=== PATIENT | female | born 1925 | race Caucasian/White ===

== ENCOUNTER → 2016-09-04 | Outpatient (CLI) | payer OTHER | LOC: MMPC 11:11 | PROVIDERS: ATTEND Internal Medicine | DX: G30.9 Alzheimer's disease, unspecified (principal) | CPT/HCPCS: 99214; G0463 ==

== ENCOUNTER 2017-01-08 19:39 | Observation (INO) ==
[2017-01-08] MEDS ORDERED: Sodium Chloride 0.9% 1,000 ML PRIMARY IV ONE (20:08)
[2017-01-08] MEDS ORDERED: ONDANSETRON 4 MG/2 ML VIAL IVP ONE (20:08)
[2017-01-08] MEDS ORDERED: MORPHINE SULFATE 2 MG/1 ML IVP ONE (20:08)
--- NOTE | 2017-01-08 20:14 | PDOC ---
Neck Pain / Injury HPI - General Chief Complaint: Neck / Back Complaint Stated Complaint: PAINFUL LUMP ON LEFT SIDE OF NECK Date Seen by Provider: 01/08/17 Time Seen by Provider: 20:09 Source: POSITIVE: Spouse, Other (Daughter) Exam Limitations: POSITIVE: Clinical condition Nurse's Notes Reviewed & Considered: Yes - History of Present Illness Initial Comments: This is a severely demented cachectic appearing 89-year-old female brought in by her family because of complaints of neck pain. Patient has had her head in a extended position for approximately 5 days since at least . She's had decreased appetite eating only a teaspoon or less of applesauce at any one time. Family states there have been no fevers, no nausea vomiting or diarrhea, no cough, no shortness of breath, she has been urinating well. Patient is mute , and minimally interactive. Body Location Affected: REPORTS: Neck Timing: REPORTS: Unknown Duration: Unknown Context: REPORTS: None Recent Injury: DENIES: Yes, No, Possibly Location at Time of Onset: REPORTS: Home Concurrent Injuries: DENIES: Neck, Head, Back, Chest, Abdomen, Extremities, Face , Other Modifying Factors: improves with: Nothing Associated Symptoms: REPORTS: Denies symptoms Similar Symptoms Previously: No Recent Care Received: REPORTS: Denies Any Prior Injuries Related to Current Complaint?: No - Patient Home Medications Home Medications: Home Medications NK [NK] 01/08/17 - Patient Allergies Allergies/Adverse Reactions: Allergies 3 Allergy/AdvReac Type Severity Reaction Status Date / Time cholestyramine Allergy Unknown per old Verified 01/08/17 20:05 [From [facility]] chart Penicillins Allergy Unknown per old Verified 01/08/17 20:05 record Chmsate-Xpu-Juy Reductase Allergy Unknown per old Verified 01/08/17 20:05 Inhibitor chart sucrose [From [facility]] Allergy Unknown per old Verified 01/08/17 20:05 chart Sulfa (Sulfonamide Allergy Unknown per old Verified 01/08/17 20:05 Antibiotics) chart ROS - Limitations ROS Limitations: Physical Impairment, Mental Impairment, Other (please comment) (No further review of systems is unavailable because the patient's mute condition.) Neck Pain/Injury Exam - General Appearance General Appearance: REPORTS: No Evidence of Trauma, Unresponsive (She is responsive only to pain.) - HEENT HEENT: POSITIVE: Head Inspection Nml, Eyes Inspection Nml, Ears Inspection Nml, Nose Inspection Nml, Oral/Dental Inspect. Nml, Pharynx Inspect. Nml, PERRL, EOMI , Dry Mucous Membranes - Pupil Size Pupil Size: 5 mm: Bilateral - Neck Neck: POSITIVE: Thyroid Normal, Muscle Spasm (Right greater than left sternocleidomastoid muscle enlarged thickened and tender to palpation. No lymphadenopathy is appreciated.), Altered Mental Status - Back Back: REPORTS: No CVA Tenderness, Limited ROM - Respiratory / CVS Respiratory / CVS: POSITIVE: Chest Non Tender, No Ecchymosis, Breath Sounds Normal, No Respiratory Distress, Heart Sounds Normal, Regular Rate/Rhythm - Abdomen Abdomen: Soft: (All Quadrants), Normal Bowel Sounds: (All Quadrants) - Skin Skin: REPORTS: Intact, Normal For Race, Warm, Dry, No Rash - Extremities Extremity Assessment: Non-Tender: (ALL), No Edema: (ALL) - Neurological / Psychological Neuro / Psych: POSITIVE: Disoriented to Person, Disoriented to Place, Disoriented to Time Neck Pain/Injury Progress - Results Reviewed by me Xrays/CTs/US Reviewed by me: Yes Lab Results Reviewed by Me: Yes CBC and BMP: 01/08/17 20:30 01/08/17 20:30 - Patient's Progress Pain Medication Addressed: POSITIVE: Not Applicable Re-Examine Time: 22:31 Status: POSITIVE: Unchanged MDM / ED Course: Patient was evaluated. An IV was started, blood drawn and sent to the lab for studies, radiographic examinations were obtained. Findings: CBC shows white count elevated at over 18. Hemoglobin is 10. Platelets are elevated. Comprehensive metabolic panel shows electrolyte dyscrasia with hypernatremia of 167. Potassium is 5.5. Creatinine is elevated at 4 BUN is elevated 148. CT scan, per my interpretation, shows no acute intracranial abnormalities, there is significant brain atrophy present. Assessment: Hyponatremia, hyperkalemia, renal failure, an inch she. Plan: Admission, IV hydration, consultation for home hospice. - Consult Counseled: POSITIVE: Family, RE: Lab Results, RE: Radiology Results, RE: DX Patient Care Time - Estimated PCT Patient Care Time (In Minutes): 45 Vital Signs - VS Reviewed Vital Signs Reviewed: Yes Discharge Clinical Impression: Acute hypernatremia, Hyperkalemia, Renal failure, Dementia Discharge Disposition: Admit to Inpatient Condition: Serious Follow Up With: NONE,NONE [NON-STAFF] - Date Decision to Admit to Inpatient: 01/08/17 Time Decision to Admit to Inpatient: 22:35
[2017-01-08 20:54] LABS: BASOPHILS # (AUTO) 0.04 10*3/UL; BASOPHILS % (AUTO) 0.2 % (0-1); EOSINOPHILS # (AUTO) 0 10*3/UL; EOSINOPHILS % (AUTO) 0 % (0-8); Hemoglobin [HGB] 10.2 g/dL (12.0-16.0); LYMPHOCYTES # (AUTO) 2.07 10*3/uL; MEAN CORPUSCULAR HEMOGLOBIN 25.8 PG (27-31); MEAN CORPUSCULAR VOLUME 86.1 FL (81-99); MEAN PLATELET VOLUME 11.5 FL (7.4-12.2); MONOCYTES % (AUTO) 4.8 % (5-15); NEUTROPHILS # (AUTO) 15.77 10*3/UL; NEUTROPHILS % (AUTO) 83.7 % (50-80); RED BLOOD COUNT 3.95 10^6/uL (4.20-5.40)
[2017-01-08 21:03] LABS: MAGNESIUM 3.9 mg/dL (1.6-2.4); SERUM ALBUMIN 3.6 g/dL (3.5-4.8)
[2017-01-08 21:12] LABS: PLATELET MORPHOLOGY COMMENT NORMAL MORPHOLOGY (NORM); WBC MORPHOLOGY COMMENT NORMAL MORPHOLOGY (NORM)
[2017-01-08 21:13] LABS: RBC MORPHOLOGY COMMENT SEE COMMENTS (NORM)
[2017-01-08 21:15] LABS: BLOOD UREA NITROGEN 148 mg/dL (7-22)
--- NOTE | 2017-01-08 21:33 | DI ---
HISTORY: Cachectic. COMPARISON: No comparison images available. FINDINGS: Exam is limited by probable overlying blanket. The heart is normal in size, allowing for t echnique. The mediastinal contour is within normal limits. The pulmonary vascularity is within norm al limits. The trachea is unremarkable. Atherosclerotic calcifications are noted. There is no evid ence of focal consolidation, pleural effusion or pneumothorax on this single view. No acute skeletal pathology is seen. IMPRESSION: 1. No acute pulmonary pathology on this single frontal view of the chest, noting limitations related to probable overlying blanket. 2. Several gas-filled loops of bowel upper abdomen are partially imaged, but incompletely evaluated.
--- NOTE | 2017-01-08 22:35 | DI ---
HISTORY: Neck pain. COMPARISON: None available. TECHNIQUE: Contiguous axial unenhanced images of the brain were obtained from the skull base through the vertex, and the images were submitted for interpretation. FINDINGS: There is no CT evidence of an acute intracranial hemorrhage. No extra-axial fluid collect ion identified. Normal hollins-white matter differentiation is noted. No mass or evidence of mass effe ct seen. CSF spaces are clear. Diffuse periventricular hypodensities are likely secondary to small vessel ischemic disease. There is mild cortical volume loss and CSF space prominence, likely senesce nt. Paranasal sinuses and orbits are normal. There are vascular calcifications. IMPRESSION: 1. No CT evidence of acute intracranial abnormality. 2. Chronic findings as above.
--- NOTE | 2017-01-08 22:49 | DI ---
HISTORY: Neck pain. COMPARISON: None available. TECHNIQUE: Contiguous axial images of the cervical spine were obtained and submitted for interpretat ion. FINDINGS: There is no evidence of an acute cervical spine fracture or dislocation. There is no prev ertebral soft tissue swelling identified that would suggest an acute soft tissue injury. Moderate de generative disc disease is present at the C4/5 level. There is mid to lower cervical moderate, right greater than left, facet arthropathy. IMPRESSION: 1. No fracture or dislocation. 2. No prevertebral soft tissue swelling to suggest acute soft tissue injury. 3. Moderate degenerative disc disease at C4/5. 4. Mid to lower cervical moderate right greater than left facet arthropathy.
[2017-01-08] MEDS ORDERED: ONDANSETRON 4 MG/2 ML VIAL IVP PRN (23:58)
[2017-01-08] MEDS ORDERED: NORMAL SALINE 10 ML SYRINGE FLUSH IVP PRN (23:58)
[2017-01-08] MEDS ORDERED: LIDOCAINE W/ SODIUM BICARB 0.5 ML SYR SUBD PRN (23:58)
[2017-01-09] MEDS ORDERED: MORPHINE SULFATE 2 MG/1 ML IVP PRN
[2017-01-09] MEDS ORDERED: LORazepam 2 MG/1 ML VIAL IVP PRN (00:01)
--- NOTE | 2017-01-09 00:10 | PDOC ---
HPI - History of Present Illness Date and Time of Service: 01/08/2017 11:30 PM Chief Complaint: Change in mental status about a week duration History of Present Illness: This is a 89 years old female with the medical history significant for history of advanced Alzheimer disease had it for more than 10 years who was brought to the hospital for evaluation because of rapid deterioration in mental status that happened probably close to 1 week ago. The daughter said that about a month ago she started to eat less than before, she would close her mouth and refused to eat and last week she become less mobile and more laying in bed. Her baseline is that she doesn't communicate except by pointing sometimes to what she wants them to do for her. Because of the change in mental status they brought her to the ER for evaluation which revealed renal failure with hypernatremia and hyperkalemia also elevated white count. She had x-rays including a CT scan of the neck and head which showed degenerative changes in the neck and CT of the head showed atrophy and small vessel changes. In the ER she was given fluids and she was admitted. Information is obtained from review of the notes and speaking to the daughters as no meaningful information can be obtained from the patient herself. Past Medical History Medical History: 1. Advanced Alzheimer disease Surgical History: No surgeries before Family History: Reviewed an Not Pertinent Past Social History: Doesn't smoke, doesn't drink, no drugs. [place] . He Was her caregiver until 2011 when he had surgery and one of her daughters is mainly her caregiver in addition to people that would come in and help during the morning. She seems that she was walking with assistance until probably a month ago. The last 2-3 weeks she seems to start to refuse food by closing her mouth. The last week there is more change in her status and she is laying in bed. Tobacco Use: Never Smoker In the Past 12 Months, Have Used or Abuse Any of the Following Substance: None Alcohol Use: None Medication / Allergies Home Medications: Home Medications Medication Instructions Recorded Confirmed Type NK [NK] 01/08/17 01/08/17 History Allergies/Adverse Reactions: Allergies 3 Allergy/AdvReac Type Severity Reaction Status Date / Time cholestyramine Allergy Unknown per old Verified 01/08/17 20:05 [From [email or web address]] chart Penicillins Allergy Unknown per old Verified 01/08/17 20:05 record Mvrjzvm-Vyd-Ahk Reductase Allergy Unknown per old Verified 01/08/17 20:05 Inhibitor chart sucrose [From [facility]] Allergy Unknown per old Verified 01/08/17 20:05 chart Sulfa (Sulfonamide Allergy Unknown per old Verified 01/08/17 20:05 Antibiotics) chart Review of Systems - Review of Systems All Systems: Reviewed & No Additional Complaints Except as Stated Exam - Vitals Vital Signs: Vital Signs Height 4 ft 11 in Weight 71 lb - General Additional General Exam Details: Thin elderly female laying in bed seems to be stiff all over. Hyperextended neck. - Head Head Exam: Normal Inspection - Eye Eye Exam: POSITIVE: Normal Appearance - ENT ENT Exam: POSITIVE: Normal Exam, Mucous Membranes Dry - Neck Additional Neck Exam Details: Neck is hyperextended - Respiratory Respiratory Exam: POSITIVE: Clear to Auscultation - Bilaterally - Cardiovascular Cardiovascular Exam: POSITIVE: RRR - GI/Abdominal GI/Abdominal Exam: POSITIVE: Normal Bowel Sounds, Non Tender, Non Distended, Soft - Rectal Rectal Exam: POSITIVE: Deferred - External Exam: POSITIVE: Deferred - Extremities Additional Extremities Exam Details: Tone seemed to be increased in all limbs. She withdrawals in response to stimuli. Pupils equal and reactive. - Neurological Additional Neurological Exam Details: Pupil equal and reactive, withdrawal response to stimuli. Tone increased all limbs. - Integumentary Integumentary Exam: POSITIVE: Dry Results - Labs CBC and BMP: 01/08/17 20:30 01/08/17 20:30 - Imaging Status: Report Reviewed by Me (CT head the intracranial abnormalities, small vessel disease changes with the atrophy. Chest x-ray no acute pulmonary abnormality. CT neck moderate degenerative changes C4-C5) Assessment and Plan - Patient Problems (1) Renal failure Current Visit: Yes Status: Acute Comment: Hard to say whether this is renal or prerenal but I think probably there is a prerenal component to the presentaion. The patient's daughter are interested in only hospice at home because of her advanced dementia. I did discuss with them fluid therapy they elected not to give her more fluid. And we decided to keep her comfort care and will call the hospice in the morning as the preference is home hospice. I will write for morphine and Ativan as needed. Code(s): N19 - Unspecified kidney failure
[2017-01-09 00:21] VITALS: RESP 14; TEMP 97
[2017-01-09 02:32] VITALS: BP 118/61
--- NOTE | 2017-01-09 10:28 | PDOC(PROG) ---
Date and Time of Service: 01/09/2017 10:24 AM Interval History: Subjective Patient seems to be comfortable. Objective : Data - Labs CBC and BMP: 01/08/17 20:30 01/08/17 20:30 Objective : Exam - General General Appearance: Thin Additional General Exam Details: Does not appear in distress - Respiratory Respiratory Exam: Clear to Auscultation - Bilaterally - Cardiovascular Cardiovascular Exam: RRR Assessment and Plan - Patient Problems (1) Renal failure Current Visit: Yes Status: Acute Comment: The decision is comfort care I spoke with the materials planner/production planner she met with the daughters and the referral for hospice was made. Code(s): N19 - Unspecified kidney failure
--- NOTE | 2017-01-09 14:42 | DCSUMMARY ---
Hospitalization Summary Admit Date: 01/08/17 Discharge Date: 01/09/17 Hospital Course: Discharge diagnoses 1. Renal failure likely acute 2. Hypernatremia 3. Hyperkalemia 4. History of advanced Alzheimer disease 5. Leukocytosis Hospital course This is a 89 years old female with medical history significant for history of advanced Alzheimer disease had it for more than 10 years who was brought to the hospital for evaluation because of for the deterioration mental status that happened close to a week before admission. The daughter said that about a month ago she started to eat less than before, she would close her mouth and refuses to eat. Last week she became less mobile and more laying in bed. Her baseline is that she doesn't communicate much except by pointing sometimes to what she wants them to do for her. Because of the change in mental status they brought her to the ER for evaluation which revealed renal failure with hypernatremia and hyperkalemia and also elevated white count. She had x-rays including a CT scan of the neck and head which showed degenerative changes in the neck and CT of the head showed atrophy and small vessel ischemic changes. In the ER she was given fluids and she was admitted. When I saw her she was laying in bed no meaningful information can be obtained from her. There is increased tone all over in addition to hyperextension of the neck she looked dry. I discussed with the family option of treatment they are interested only in hospice at home because of her advanced Alzheimer disease. We decided to keep her comfortable in the next day we consulted hospice who accepted the patient and she will be discharge home for hospice at home. Laboratory Results 01/08/17 01/08/17 Range/Units 20:30 20:30 WBC 18.83 H (4.8-10.8) 10^3/uL RBC 3.95 L (4.20-5.40) 10^6/uL Hgb 10.2 L (12.0-16.0) g/dL Hct 34.0 L (37.0-47.0) % MCV 86.1 (81-99) FL MCH 25.8 L (27-31) PG MCHC 30.0 L (33-37) g/dL RDW Std Deviation 66.0 H (39-50) fL RDW Coeff of Dom 21.6 H (11.5-14.5) % Plt Count 421 H (140-350) 10*3/uL MPV 11.5 (7.4-12.2) FL Immature Gran % (Auto) 0.3 (0-5) % Neut % (Auto) 83.7 H (50-80) % Lymph % (Auto) 11.0 (10-50) % [place] % (Auto) 4.8 L (5-15) % Eos % (Auto) 0 (0-8) % Baso % (Auto) 0.2 (0-1) % Immature Gran # (Auto) 0.05 10*3/UL Neut # (Auto) 15.77 10*3/UL Lymph # (Auto) 2.07 10*3/uL [place] # (Auto) 0.90 H (0.3-0.8) 10*3/UL Eos # (Auto) 0 10*3/UL Baso # (Auto) 0.04 10*3/UL WBC Morphology Comment Normal morphology (NORM) Plt Morphology Comment Normal morphology (NORM) RBC Morph Comment See comments (NORM) Sodium 167 H* (135-145) meq/L Potassium 5.5 H (3.8-5.2) meq/L Chloride 127 H (98-112) meq/L Carbon Dioxide 20 L (23-33) meq/L Anion Gap 20 (5-20) BUN 148 H (7-22) mg/dL Creatinine 4.0 H (0.50-1.20) mg/dL Estimated GFR Paving Machine Operator BUN/Creatinine Ratio 37.00 H (6-20) Glucose 134 H (78-110) mg/dL Calculated Osmolality 393.0 H (267-292) mOsm/kg Calcium 9.6 (8.7-10.7) mg/dL Magnesium 3.9 H (1.6-2.4) mg/dL Total Bilirubin 0.5 (0.3-1.2) mg/dL AST 29 (8-39) IU/L ALT 44 (9-52) IU/L Alkaline Phosphatase 224 H (38-126) IU/L C-Reactive Protein 8.9 H (0.0-0.9) mg/dL Total Protein 7.6 (6.1-8.0) g/dL Albumin 3.6 (3.5-4.8) g/dL Globulin 4.1 (2.50-4.10) g/dL Albumin/Globulin Ratio 0.80 L (1.3-2.0) mg/g Home Medications Medication Instructions Recorded Confirmed Type Lorazepam 2 mg PO Q2H PRN PRN #30 oral.conc 01/09/17 Rx Morphine Sulfate [Roxanol] 20 mg PO Q1H PRN #30 ml 01/09/17 Rx Patient will be followed up by hospice at home Exam - Vitals Vital Signs: Vital Signs Temperature 97 F Temperature Source Temporal Artery Scan Pulse Rate [Pulse Oximeter] 77 Pulse Rate 91 Respiratory Rate 14 Blood Pressure [Right Arm] 131/51 Blood Pressure 118/61 Pulse Ox 96 Oxygen Flow Rate 2.5 Oxygen Delivery Method Nasal Cannula Height 4 ft 11 in Weight 71 lb Patient Problems - Patient Problem List (1) Renal failure Current Visit: Yes Status: Acute Comment: The decision is comfort care I spoke with the systems planner she met with the daughters and the referral for hospice was made. Code(s): N19 - Unspecified kidney failure Category: Medical
== END 2017-01-09 16:41 | disposition home or self-care (01) ==
LOC: ER 19:39 → INTOOBSV 22:33 → MED/SURG 22:33
PROVIDERS: ADMIT Internal Medicine; ATTEND Internal Medicine